=== PATIENT | female | born 1940 | race Caucasian/White ===

== ENCOUNTER 2024-09-22 14:42 | Emergency (ER) | payer OTHER, MEDICAID, SELFPAY ==
--- NOTE | 2024-09-22 15:29 | EDNOTE_ITS ---
ED General RME/HPI General Chief complaint: General Adult/Misc Complain Stated complaint: WEAKNESS Time Seen by Provider: 09/22/24 15:22 Arrival date/time: 09/22/24 14:42 RME / HPI RME / HPI narrative: This section includes all my notes and documentations, including HPI, PE, MDM, Procedure Notes, and PLAN. Sebastian Mcneil MD HPI: 83 year old female with history of Alzheimer's disease, HFpEF 60% 12/2022, AFib, CVA w/o residual deficits, COPD, hypertension, alcoholic liver cirrhosis, GERD presents [facility] the ED [facility] for evaluation of global weakness and decreased appetite x 6 days. Per medics, PA staff reported the patient was just discharged from this facility after a 6 day admission and since arriving there has not had an appetite. No other complaints reported. ROS: Can't obtain from the patient due to dementia. Physical Exam: General: Alert. No acute distress. Eyes: Conjunctivae and lids clear. EOMI. PERRL. ENT: No nasal congestion. Neck: Supple. No carotid bruit. No JVD. Heart: RRR. Lungs: No respiratory distress. Moderately decreased air movement. No significant rhonchi, wheezing, rales. Abdomen: Soft and nontender. Legs: No clubbing, cyanosis, edema. Skin: Warm and dry. Neuro: Alert. Cranial Nerves II-XII grossly intact. No peripheral motor deficits. Musculoskeletal: All major joints and bones are not tender with no limited ROM. I reviewed EMS and long-term notes. I reviewed all diagnostic test results. At this point, diagnoses include generalized weakness and hypokalemia. Discharge instructions from Dr. Mcneil: 1. After evaluation, CT scan of the brain showed no stroke. And the blood tests were normal except low potassium level, replaced orally and intravenously today. 2. Take potassium supplement as prescribed daily until cleared by a doctor. 3. Take Diflucan for the significant amount of yeast in her urine, seen yesterday. 3. See a private doctor on 09/23/2024 for recheck and further care. Ask to review all diagnostic test results, including official radiology reports, from today and from recent hospitalization here this month. To make sure she receives all necessary follow-ups and monitoring, including potassium level and workup for the lung mass. If the lung mass is cancer, this may explain the weakness and not eating. 4. Seek immediate medical care with worsening or with any concerns. Related Data Home Medications ?Medication ?Instructions ?Recorded ?Confirmed atorvastatin 20 mg tablet 20 mg PO QPM 10/05/18 09/15/24 donepezil 5 mg tablet 5 mg PO QDAY 08/22/23 09/15/24 amlodipine 2.5 mg tablet 2.5 mg PO DAILY 09/15/24 09/15/24 cyclobenzaprine 5 mg tablet 5 mg PO QPM 09/15/24 09/15/24 latanoprost 0.005 % eye drops 1 drp ophthalmic (eye) HS 09/15/24 09/15/24 lisinopril 10 mg tablet 10 mg PO QDAY 09/15/24 09/15/24 Previous Rx's ?Medication ?Instructions ?Recorded megestrol 800 mg/20 mL (20 mL) 800 mg (20 mL) PO QDAY #600 mL 09/21/24 oral suspension fluconazole 200 mg tablet 200 mg PO QDAY #7 tabs 09/22/24 (Diflucan) potassium chloride 20 mEq 20 meq PO QDAY #30 tabs 09/22/24 tablet,extended release Allergies Allergy/AdvReac Type Severity Reaction Status Date / Time codeine Allergy Severe Hives Verified 09/23/24 23:20 Penicillins Allergy Severe Hives Verified 09/23/24 23:20 ibuprofen Allergy Verified 09/23/24 23:20 Review of Systems Review of Systems Systems Reviewed: All systems reviewed, normal except as documented Past Medical History Past Medical History NEUROLOGIC: Positive Neurological Disorders and Migraine CARDIAC: Positive Cardiac Disorders, Congestive Heart Failure and Hypertension RESPIRATORY: Positive Chronic Obstructive Pulmonary Disease (COPD) GASTROINTESTINAL: Positive Gastrointestinal Disorders, Gastrointestinal Bleed and Gastroesophageal Reflux Disease GENITOURINARY: Positive Genitourinary Disorders and Renal Disease MUSCULOSKELETAL: Positive Musculoskeletal Disorders, Arthritis and Osteoporosis PSYCHO/SOCIAL: Positive Depression and Anxiety OTHER HISTORY: Positive Blood Transfusions Surgical History SURGICAL: Positive Open Reduction Internal Fixation Social History SMOKING STATUS: Current some day smoker ED Exam Narrative Physical exam: As noted in HPI Course Quality Measures none Orders Category Date Time Status Bedside COVID-19 Antigen Test NOW Care 09/22/24 15:35 Completed Bedside Influenza A&B Antigen Test NOW Care 09/22/24 15:[address] head/brain wo con Stat Exams 09/22/24 15:39 Completed CBC Stat Lab 09/22/24 16:33 Completed CMP [Comprehensive Metabolic Panel] Stat Lab 09/22/24 16:33 Completed Magnesium Stat Lab 09/22/24 16:33 Completed RSV [Respiratory Syncytial Virus Ag] Stat Lab 09/22/24 15:49 Completed KCL 10% Liq UDC 15 ML Med 09/22/24 17:20 Discontinued 40 meq PO X1 ONE Reevaluation(s) Reevaluation #1: I spoke with the patients daughter Samantha. States she saw the patient yesterday at 2pm and today at 3pm and appeared the same. Time: 15:35 Vital Signs Vital signs: Vital Signs Temperature 98.3 F 09/22/24 15:58 Pulse Rate 81 09/22/24 15:58 Respiratory Rate 16 09/22/24 15:58 Blood Pressure 120/83 09/22/24 15:58 Pulse Oximetry (%) 98 09/22/24 15:58 Oxygen Delivery Method Room Air 09/22/24 15:58 Pulse ox is 98% on room air which is adequate. [facility] Patient data External records reviewed:: [facility] previous records (I reviewed admission from 09/15/2024 through 09/21/2024), EMS form and [facility] records (I reviewed medications and medical hx from [facility] ) Clinical information provided by:: EMS Social determinants that could affect healthcare access:: housing (SNF resident ) Patient has the following chronic illnesses:: Alzheimer's disease, HFpEF 60% 12/2022, AFib, CVA w/o residual deficits, COPD, hypertension, alcoholic liver cirrhosis, GERD How is presenting disease/condition affected by chronic disease/condition?: e xacerbated by Evaluation data The following diagnostics were reviewed and interpreted by me:: lab results and radiology exam(s) Lab and/or radiology exams considered but not ordered:: None Interpretation Summary: Ordering Physician: Sebastian Mcneil MD Date of Service: 09/22/24 Procedure(s): CT head/brain wo con Accession Number(s): [id number] cc: Sebastian Mcneil MD; Marcelo Mccarthy MD; Elizabeth Ragsdale PA-C~ Examination: CT brain head without contrast. 2-D sagittal coronal reconstructions Date and time of exam:September 22, 2024 1658 hours INDICATIONS: Altered mental status, confusion today, patient fell with injury to the back of the head September 15, 2024 followed by head pain CTDI: vol (mGy):42.7 DLP: (mGycm):864 Technique: Multiple CT axial sections of the brain have been obtained, 5 mm slice thickness. Contrast has not been administered. 2-D sagittal, coronal reconstructions have been obtained Low dose protocols were performed. One or more of the following dose reduction techniques were used; automated exposure control, adjustment of the mA and/or KV according to patient size, use of iterative reconstruction technique. Findings: Mild ventricular enlargement. Intra-axial or extra-axial hemorrhage density is not seen. No mass effect or midline shift Basal cisterns are not remarkable. Fourth ventricle is midline. Cranial vault intact. Right sphenoid sinusitis Impression: Negative for acute hemorrhage, mass effect or midline shift If altered mental status persists, consider brain MRI follow-up, stroke protocol Dictated By: Marcelo Mccarthy MD Signed By: <Electronically signed by Marcelo Mccarthy MD in OV> 09/22/24 1732 Medications Medications considered but not ordered:: None Medication administrations:: Medication Administration History Discontinued Medications Potassium Chloride (Potassium Chloride 10% 20 Meq/15 Ml Udc) 40 meq PO X1 ONE Stop: 09/22/24 17:21 Last Admin: 09/22/24 19:36 Dose: 40 meq Documented By: DB See above Consultations Consultation(s) initiated? (list below): No Diagnosis Differential Diagnosis ED Complaint MDM: Sepsis, UTI, weakness Most likely diagnosis given after review of the tests above:: Asthenia Hypokalemia Admission Indicated Admission indicated?: not indicated Explain why admission is indicated or not indicated:: Does not meet admission criteria Admission Request Was there a request for admission?: No Disposition Plan Disposition Plan: Discharge Discharge Attestation Discharge Attestation: The patient and all family members were given an opportunity to ask questions and understood the discharge instructions. Discharge instructions specifically effects, indications for sooner follow up or return to the emergency department, and the expected course of current diagnosis. Patient condition: Stable Medical Decision Making Differential Diagnosis Differential Diagnosis: Sepsis, UTI, weakness Lab Data 09/22/24 16:33 09/22/24 16:33 Labs: Lab Results 09/22/24 09/22/24 Range/Units 15:49 16:33 WBC 6.6 (3.6-11.0) Thou/mm3 RBC 3.18 L (4.00-5.20) Miln/mm3 Hgb 9.8 L (12.0-16.0) g/dL Hct 29.3 L (36.0-46.0) % MCV 92 (80-100) fL MCH 30.8 (25.0-35.0) pg MCHC 33.4 (31.0-37.0) g/dl RDW Std Deviation 47.7 H (36.4-46.3) fL Plt Count 94 L (140-440) Thou/mm3 Neut % (Auto) 59 (37-80) % Lymph % (Auto) 22 (10-50) % [place] % (Auto) 15 H (0-12) % Eos % (Auto) 2 (0-10) % Baso % (Auto) 1 (0-2.5) % Neut # (Auto) 3.9 (1.8-7.7) Thou/mm3 Lymph # (Auto) 1.4 (1.0-4.8) Thou/mm3 [place] # (Auto) 1.0 H (0.0-0.8) Thou/mm3 Eos # (Auto) 0.1 (0.0-0.5) Thou/mm3 Baso # (Auto) 0.0 (0.0-0.2) Thou/mm3 Immature Gran # (Auto) 0.17 H (0.00-0.00) Thou/mm3 Absolute Nucleated RBC 0.02 H (0.00-0.00) Thou/mm3 Immature Gran % 3 H (0-0) % Nucleated RBC % 0 (0) /100 WBC Sodium 148 H (136-145) mMol/L Potassium 2.9 L (3.4-5.1) mMol/L Chloride 115 H (98-107) mMol/L Carbon Dioxide 23.8 (20.0-31.0) mMol/L Anion Gap 9 (7-16) BUN 10 (9-23) mg/dL Creatinine 1.0 (0.6-1.3) mg/dL Estim Creat Clear Calc 33.3 L (>60) mL/min eGFR 57 L (60 - ) See Note BUN/Creatinine Ratio 10 L (12-20) Ratio Glucose 89 (74-106) mg/dL Calculated Osmolality 292 (275-295) Calcium 8.8 (8.3-10.6) mg/dL Corrected Calcium 9.5 (8.5-10.1) mg/dL Magnesium 1.9 (1.6-2.6) mg/dL Total Bilirubin 0.7 (0.3-1.2) mg/dL AST 22 (0-34) U/L ALT 24 (10-49) U/L Alkaline Phosphatase 80 (46-116) U/L Total Protein 5.2 L (5.7-8.2) gm/dL Albumin 3.1 L (3.4-4.8) gm/dL Globulin 2.1 L (2.3-3.5) gm/dL Albumin/Globulin Ratio 1.5 (1.2-2.2) RSV Rapid Negative (Negative) Discharge Plan Plan Patient Disposition: Xfer Skilled Nsg Fac (SNF) Prescriptions/Referrals Prescriptions/Med Rec: New potassium chloride 20 mEq tablet extended release 20 meq PO QDAY Qty: 30 5RF fluconazole [Diflucan] 200 mg tablet 200 mg PO QDAY Qty: 7 0RF No Action donepezil 5 mg tablet 5 mg PO QDAY atorvastatin 20 mg Tablet 20 mg PO QPM amlodipine 2.5 mg Tablet 2.5 mg PO DAILY lisinopril 10 mg Tablet 10 mg PO QDAY cyclobenzaprine 5 mg Tablet 5 mg PO QPM latanoprost 0.005 % Drops 1 drp OPHTHALMIC (EYE) HS Rx Instructions: 0.005%1 drop both eyes HS megestrol 800 mg/20 mL (20 mL) suspension 800 mg PO QDAY Qty: 600 0RF Referrals: Elizabeth Ragsdale PA-C [Primary Care Provider] - In 1 week Problem List Clinical Impression: Asthenia, Hypokalemia Patient/Caregiver Discharge Instructions Education Materials: ED Hypokalemia, ED Weakness (Uncertain Cause) Additional Instructions: Discharge instructions from Dr. Mcneil: 1. After evaluation, CT scan of the brain showed no stroke. And the blood tests were normal except low potassium level, replaced orally and intravenously today. 2. Take potassium supplement as prescribed daily until cleared by a doctor. 3. Take Diflucan for the significant amount of yeast in her urine, seen yesterday. 3. See a private doctor on 09/23/2024 for recheck and further care. Ask to review all diagnostic test results, including official radiology reports, from today and from recent hospitalization here this month. To make sure she receives all necessary follow-ups and monitoring, including potassium level and workup for the lung mass. If the lung mass is cancer, this may explain the weakness and not eating. 4. Seek immediate medical care with worsening or with any concerns. Print Language: [place] Stand Alone Forms: Marina Award Info., Patient Portal Info Letter
--- NOTE | 2024-09-22 15:39 | XR_ITS ---
Examination: CT brain head without contrast. 2-D sagittal coronal reconstructions Date and time of exam:September 22, 2024 1658 hours INDICATIONS: Altered mental status, confusion today, patient fell with injury to the back of the head September 15, 2024 followed by head pain CTDI: vol (mGy):42.7 DLP: (mGycm):864 Technique: Multiple CT axial sections of the brain have been obtained, 5 mm slice thickness. Contrast has not been administered. 2-D sagittal, coronal reconstructions have been obtained Low dose protocols were performed. One or more of the following dose reduction techniques were used; automated exposure control, adjustment of the mA and/or KV according to patient size, use of iterative reconstruction technique. Findings: Mild ventricular enlargement. Intra-axial or extra-axial hemorrhage density is not seen. No mass effect or midline shift Basal cisterns are not remarkable. Fourth ventricle is midline. Cranial vault intact. Right sphenoid sinusitis Impression: Negative for acute hemorrhage, mass effect or midline shift If altered mental status persists, consider brain MRI follow-up, stroke protocol
[2024-09-22 15:58] VITALS: BP 120/83; PULSE 81; RESP 16; TEMP 36.8; O2SAT 98
[2024-09-22 16:01] VITALS: BMI 20.7
[2024-09-22 16:43] LABS: Respiratory Syncytial Virus Ag Negative (Negative)
[2024-09-22 17:01] LABS: Basophils % (Auto) 1 % (0-2.5); Eosinophils # (Auto) 0.1 Thou/mm3 (0.0-0.5); Eosinophils % (Auto) 2 % (0-10); Hematocrit 29.3 % (36.0-46.0); Hemoglobin 9.8 g/dL (12.0-16.0); Immature Granulocytes % (Auto) 3 % (0-0); Immature Granulocytes Auto 0.17 Thou/mm3 (0.00-0.00); Lymphocytes # (Auto) 1.4 Thou/mm3 (1.0-4.8); Lymphocytes % (Auto) 22 % (10-50); Mean Corpuscular HGB Conc 33.4 g/dl (31.0-37.0); Mean Corpuscular Hemoglobin 30.8 pg (25.0-35.0); Mean Corpuscular Volume 92 fL (80-100); Monocytes % (Auto) 15 % (0-12); Neutrophils # (Auto) 3.9 Thou/mm3 (1.8-7.7); Neutrophils % (Auto) 59 % (37-80); Nucleated Red Blood Cell # 0.02 Thou/mm3 (0.00-0.00); Nucleated Red Blood Cell % 0 /100 WBC (0); Platelet Count 94 Thou/mm3 (140-440); RDW Standard Deviation 47.7 fL (36.4-46.3); Red Blood Count 3.18 Miln/mm3 (4.00-5.20); White Blood Count 6.6 Thou/mm3 (3.6-11.0)
[2024-09-22 17:18] LABS: Alanine Aminotransferase 24 U/L (10-49); Albumin, Serum 3.1 gm/dL (3.4-4.8); Albumin/Globulin Ratio 1.5 (1.2-2.2); Alkaline Phosphatase 80 U/L (46-116); Anion Gap 9 (7-16); Aspartate Amino Transferase 22 U/L (0-34); BUN/Creatinine Ratio 10 Ratio (12-20); Bilirubin,Total 0.7 mg/dL (0.3-1.2); Blood Urea Nitrogen 10 mg/dL (9-23); Calcium 8.8 mg/dL (8.3-10.6); Calcium (Corrected) 9.5 mg/dL (8.5-10.1); Carbon Dioxide 23.8 mMol/L (20.0-31.0); Chloride 115 mMol/L (98-107); Estimated Creatinine Clearance 33.3 mL/min (>60); Globulin 2.1 gm/dL (2.3-3.5); Glucose 89 mg/dL (74-106); Magnesium 1.9 mg/dL (1.6-2.6); Osmolality,Calculated 292 (275-295); Potassium 2.9 mMol/L (3.4-5.1); Sodium 148 mMol/L (136-145); Total Protein 5.2 gm/dL (5.7-8.2); eGFR 57 See Note
[2024-09-22 18:40] VITALS: BP 139/91; PULSE 90; RESP 20; TEMP 37; O2SAT 98
[2024-09-22] MEDS: POTASSIUM CHLORIDE 10% 20 MEQ/15 ML UDC 40 MEQ PO (19:36)
[2024-09-22 20:04] VITALS: BP 107/86; PULSE 99; RESP 19; TEMP 36.5; O2SAT 97
--- NOTE | 2024-09-22 22:11 | PC.NURSE ---
Called donna garcia and gave report to Yola GALINDO
[2024-09-22 23:32] VITALS: BP 127/82; PULSE 60; RESP 16; TEMP 36.6; O2SAT 98
== END 2024-09-22 23:30 | disposition skilled nursing facility (03) ==
PROVIDERS: Emergency Provider Emergency Medicine; PCP Physician Assistant
DX: E87.6 Hypokalemia (principal); R53.1 Weakness; S09.90XA Unspecified injury of head, initial encounter; W19.XXXA Unspecified fall, initial encounter; F02.80 Dementia in other diseases classified elsewhere, unspecified severity, without behavioral disturbance, psychotic disturbance, mood disturbance, and anxiety; G30.9 Alzheimer's disease, unspecified
CPT/HCPCS: 36415; 70450; 80053; 83735; 85025; 87400; 87634; 87811; 99284; A9270

== ENCOUNTER 2024-09-23 23:02 | Emergency (ER) | payer OTHER, MEDICAID, SELFPAY ==
[2024-09-23 23:07] VITALS: PULSE 83; RESP 20; O2SAT 79
[2024-09-23 23:18] VITALS: BP 122/77; PULSE 90; RESP 20; TEMP 36.5; O2SAT 97
--- NOTE | 2024-09-23 23:18 | EKG_ITS ---
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
[2024-09-23 23:19] VITALS: BMI 19.5
--- NOTE | 2024-09-23 23:32 | PD.EDAMS ---
Altered Mental Status RME/HPI General Chief Complaint: Altered Mental Status Stated Complaint: AMS Time Seen by Provider: 09/23/24 23:34 Arrival date/time: 09/23/24 23:02 RME / HPI RME / HPI narrative: Dr. Schimtz's Main ED Evaluation: 83yo female ADRIANA from [facility] for a chief complaint of AMS. Per EMS, patient's LKWT was at 2000. Blood sugar on scene was 70, so EMS administered D10. EMS endorses the patient has not been eating or drinking. Full ROS is unobtainable due to the patient's AMS. 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 deficits, COPD, hypertension, alcoholic liver cirrhosis, GERD, left lung mass CODE Status: DNR/DNI Related Data Home Medications ?Medication ?Instructions ?Recorded ?Confirmed atorvastatin 20 mg tablet 20 mg PO QPM 10/05/18 09/15/24 donepezil 5 mg tablet 5 mg PO QDAY 08/22/23 09/15/24 amlodipine 2.5 mg tablet 2.5 mg PO DAILY 09/15/24 09/15/24 cyclobenzaprine 5 mg tablet 5 mg PO QPM 09/15/24 09/15/24 latanoprost 0.005 % eye drops 1 drp ophthalmic (eye) HS 09/15/24 09/15/24 lisinopril 10 mg tablet 10 mg PO QDAY 09/15/24 09/15/24 Previous Rx's ?Medication ?Instructions ?Recorded megestrol 800 mg/20 mL (20 mL) 800 mg (20 mL) PO QDAY #600 mL 09/21/24 oral suspension fluconazole 200 mg tablet 200 mg PO QDAY #7 tabs 09/22/24 (Diflucan) potassium chloride 20 mEq 20 meq PO QDAY #30 tabs 09/22/24 tablet,extended release Allergies Allergy/AdvReac Type Severity Reaction Status Date / Time codeine Allergy Severe Hives Verified 09/23/24 23:20 Penicillins Allergy Severe Hives Verified 09/23/24 23:20 ibuprofen Allergy Verified 09/23/24 23:20 Review of Systems Review of Systems ROS Unobtainable: unobtainable due to mental status ED Exam Narrative Physical exam: GEN. APPEARANCE: Patient can only say her first name, but has unintelligible speech; does look terminally ill. Patient has slow mentation, but she had good eye contact. Patient does not provide reliable answers, stating everything hurts when I palpate. VITALS: All vitals were reviewed and the pulse ox is 97% on 6L/nasal cannula, which is normal according to my interpretation. HEENT: Normocephalic, atraumatic and nontender. Pupils are equal and reactive to light and accommodation. Oral mucosa are dry. NECK: Supple, nontender, no meningismus, no JVD. CHEST: Nontender on palpation, no deformity and no crepitus. CARDIOVASCULAR: Heart regular rhythm no murmur or gallop rub or extra beats; not tachycardic. LUNGS: Clear to auscultation bilaterally with symmetrical chest rise. No laboring tachypnea or wheezing. No intercostal subcostal retraction. No rales and no rhonchi. ABDOMEN: Soft, flat, nontender at all, no guarding or rebound tenderness. There are no abnormal masses palpated. No pulsatile masses or bruits. Active and normal bowel sounds. GENITALIA: Not examined. RECTAL EXAM: Not done. EXTREMITIES: Nontender. No edema. No cyanosis. Patient is able to move all 4 extremities well. SKIN: Warm and dry, no rashes noted. MUSCULOSKELETAL: No lumbar or midline bony tenderness. There is no CVA tenderness. No paraspinal muscle spasm or tenderness. NEURO: Cranial nerves II through XII grossly intact. There is no focalization. GCS is 13. PSYCHIATRIC: Patient is in normal mood and affect, cooperative. LYMPHATICS: No major lymphadenopathy noted. Course Quality Measures none Orders Category Date Time Status EKG (ED ONLY) *Do not use* NOW Care 09/23/24 23:18 Completed Insert [Insert IV] NOW Care 09/23/24 23:55 Active EKG (ED Only) Stat Exams 09/23/24 23:18 Draft XR chest 1V portable Stat Exams 09/23/24 23:55 Taken B-Type Natriuretic Peptide Stat Lab 09/23/24 23:55 Completed CBC Stat Lab 09/23/24 23:55 Completed Comprehensive Metabolic Panel Stat Lab 09/23/24 23:55 Completed Troponin I Stat Lab 09/23/24 23:55 Completed Potassium Chloride [K-Dur] Med 09/24/24 02:42 Discontinued 20 meq PO X1 ONE Sodium Chloride 0.45 % [Ns 0.45%] 1,000 ml Med 09/24/24 03:19 Discontinued IV 500 mls/hr Sodium Chloride 0.45 % [Ns 0.45%] 1,000 ml Med 09/24/24 02:43 Discontinued IV 999 mls/hr Sodium Chloride 0.45 % [Ns 0.45%] 1,000 ml Med 09/24/24 02:44 Discontinued IV 999 mls/hr Vital Signs Vital signs: Vital Signs Temperature 97.7 F 09/23/24 23:18 Pulse Rate 90 09/23/24 23:18 Respiratory Rate 20 09/23/24 23:18 Blood Pressure 122/77 09/23/24 23:18 Pulse Oximetry (%) 97 09/23/24 23:18 Oxygen Delivery Method Nasal Cannula 09/23/24 23:18 Oxygen Flow Rate 6 09/23/24 23:18 Procedures -ED EKG Interpretation #1: Date of EK09/24/24 Rate: 85 Interpretation: Interpreted by me EKG Impression: Normal sinus rhythm, No ectopy, Normal intervals, Normal axis and Non-specific ST-T Additional EKG comment: LVH with a strain. Altered Mental Status MDM Narrative MDM Narrative:: Scribe Attestation: 09/23/24 - Bethany Hackett am scribing for and in the presence of Dr. Schmitz. Patient was sent over from [facility] due to altered mental status. Patient was admitted to this hospital on 09/15/2024 until 09/21/2024 for dehydration and hypokalemia and also left upper lung mass. [facility] yesterday morning again for altered mental status. A CAT scan of the [facility], which resulted to be negative. She was found hypokalemic and was [facility]. [facility] the [facility] since her back for altered mental status and not eating and not drinking. Patient can barely say her first name and it is an unintelligible speech. Her mucosa are very dry. She has good eye contact but her mentation is very slow. She seems to be under no distress. She seems to be terminally ill. We will do basic workup on her. The resident was rotating with me, says that he took care of her upstairs while this patient was admitted on 15 September and at that time, and also at the time of discharge, patient was unchanged in her mental status and this is the way that she has been since then. At 2:40 AM, her sodium is elevated at 151 and her chloride is 118, which is quite high and her potassium is 3.1. Therefore, I ordered 1000 cc of half-normal saline IV wide open as well as 20 mill equivalents of potassium p.o. and [facility] will be [facility]. Provider Notation: Although this document has been carefully reviewed, there may still be some phonetic and other typographical errors. These errors are purely grammatical due to imperfections in the software program and should not be construed in any way to compromise the substance of the patient's medical care during this visit. 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 Medications / Prescriptions Medications or Prescriptions considered but not ordered:: none Medication administrations:: Medication Administration History Discontinued Medications Sodium Chloride (Ns 0.45%) 1,000 mls @ 999 mls/hr IV .Q1H1M SERVANDO Stop: 10/24/24 02:42 Last Admin: 09/24/24 02:47 Dose: Not Given Documented By: SE Non-Admin Reason: Duplicate Medication on eMAR Sodium Chloride (Ns 0.45%) 1,000 mls @ 999 mls/hr IV .Q1H1M ONE Stop: 09/24/24 03:44 Last Admin: 09/24/24 03:21 Dose: Not Given Documented By: NOVA Non-Admin Reason: Discontinued Sodium Chloride (Ns 0.45%) 1,000 mls @ 500 mls/hr IV .Q2H ONE Stop: 09/24/24 04:43 Last Admin: 09/24/24 03:21 Dose: 500 mls/hr Documented By: NOVA Potassium Chloride (Potassium Chloride 20 Meq Tabcr) 20 meq PO X1 ONE Stop: 09/24/24 02:43 Last Admin: 09/24/24 03:17 Dose: 20 meq Documented By: NOVA see above, if any Consultations Consultation(s) initiated? (list below): No Diagnosis Differential diagnosis altered mental status: sepsis and other (lung mass, hypokalemia, electrolyte imbalance, pneumonia) Most likely diagnosis given after review of the tests above:: see below Admission Indicated Admission indicated?: not indicated Admission Request Was there a request for admission?: No Disposition Plan Disposition Plan: Discharge Discharge Attestation Discharge Attestation: The patient and all family members were given an opportunity to ask questions and understood the discharge instructions. Discharge instructions specifically effects, indications for sooner follow up or return to the emergency department, and the expected course of current diagnosis. Patient condition: Stable Discharge Plan Plan Patient Disposition: Xfer Skilled Nsg Fac (SNF) Prescriptions/Referrals Prescriptions/Med Rec: No Action donepezil 5 mg tablet 5 mg PO QDAY atorvastatin 20 mg Tablet 20 mg PO QPM amlodipine 2.5 mg Tablet 2.5 mg PO DAILY lisinopril 10 mg Tablet 10 mg PO QDAY cyclobenzaprine 5 mg Tablet 5 mg PO QPM latanoprost 0.005 % Drops 1 drp OPHTHALMIC (EYE) HS Rx Instructions: 0.005%1 drop both eyes HS megestrol 800 mg/20 mL (20 mL) suspension 800 mg PO QDAY Qty: 600 0RF potassium chloride 20 mEq tablet extended release 20 meq PO QDAY Qty: 30 5RF fluconazole [Diflucan] 200 mg tablet 200 mg PO QDAY Qty: 7 0RF Referrals: Talat Vargas MD [Primary Care Provider] - 09/25/24 10:00 am Problem List Clinical Impression: Dehydration, Electrolyte imbalance Patient/Caregiver Discharge Instructions Education Materials: ED Dehydration (Adult) Additional Instructions: Please be generous to give her plenty of water every day because her sodium and chloride are high. Also continue giving her potassium 10 mEq/day. Print Language: Filipino Stand Alone Forms: Marina Award Info., Patient Portal Info Letter
--- NOTE | 2024-09-23 23:55 | XR_ITS ---
Examination: AP chest single view Technique one AP portable semiupright chest single view Exam date and time: September 24, 2024 1202 hours Comparison January 30, 2023 INDICATIONS: Chest pain shortness of breath today. FINDINGS: 4 cm masslike area in the left hilum Opacity both bases consistent with pneumonia Mild prominence left ventricle IMPRESSION: Recommend CT chest post intravenous contrast follow-up to exclude left mediastinal tumor adenopathy Pneumonia both bases
[2024-09-24 00:41] LABS: Alanine Aminotransferase 29 U/L (10-49); Albumin, Serum 3.1 gm/dL (3.4-4.8); Albumin/Globulin Ratio 1.5 (1.2-2.2); Alkaline Phosphatase 83 U/L (46-116); Anion Gap 8 (7-16); Aspartate Amino Transferase 36 U/L (0-34); BUN/Creatinine Ratio 13 Ratio (12-20); Bilirubin,Total 0.6 mg/dL (0.3-1.2); Blood Urea Nitrogen 15 mg/dL (9-23); Calcium 9.6 mg/dL (8.3-10.6); Calcium (Corrected) 10.3 mg/dL (8.5-10.1); Carbon Dioxide 24.6 mMol/L (20.0-31.0); Chloride 118 mMol/L (98-107); Creatinine (Component) 1.2 mg/dL (0.6-1.3); Globulin 2.1 gm/dL (2.3-3.5); Glucose 181 mg/dL (74-106); Osmolality,Calculated 305 (275-295); Potassium 3.1 mMol/L (3.4-5.1); Sodium 151 mMol/L (136-145); Total Protein 5.2 gm/dL (5.7-8.2); Troponin I 0.028 ng/mL (0.0-0.045); eGFR 45 See Note
[2024-09-24 00:51] LABS: Basophils % (Auto) 1 % (0-2.5); Eosinophils # (Auto) 0.1 Thou/mm3 (0.0-0.5); Eosinophils % (Auto) 1 % (0-10); Hematocrit 28.8 % (36.0-46.0); Hemoglobin 9.4 g/dL (12.0-16.0); Immature Granulocytes % (Auto) 3 % (0-0); Immature Granulocytes Auto 0.22 Thou/mm3 (0.00-0.00); Lymphocytes # (Auto) 1.4 Thou/mm3 (1.0-4.8); Lymphocytes % (Auto) 21 % (10-50); Mean Corpuscular HGB Conc 32.6 g/dl (31.0-37.0); Mean Corpuscular Hemoglobin 30.6 pg (25.0-35.0); Mean Corpuscular Volume 94 fL (80-100); Monocytes # (Auto) 1.2 Thou/mm3 (0.0-0.8); Monocytes % (Auto) 18 % (0-12); Neutrophils # (Auto) 3.7 Thou/mm3 (1.8-7.7); Neutrophils % (Auto) 56 % (37-80); Nucleated Red Blood Cell % 0 /100 WBC (0); Platelet Count 94 Thou/mm3 (140-440); RDW Standard Deviation 48.5 fL (36.4-46.3); Red Blood Count 3.07 Miln/mm3 (4.00-5.20); White Blood Count 6.5 Thou/mm3 (3.6-11.0)
[2024-09-24 01:17] VITALS: BP 119/72; PULSE 70; RESP 14; O2SAT 100
[2024-09-24 01:17] LABS: B-Type Natriuretic Peptide 79 pg/mL (0-100)
--- NOTE | 2024-09-24 03:13 | PC.NURSE ---
0313 PER OLEGARIO FROM TELE-PHARMACY STATES 1/2 NORMAL SALINE AT 500ML AND HOUR WOULD BE OK TO ADMINISTER.
[2024-09-24] MEDS: POTASSIUM CHLORIDE 20 mEq TABCR PO (03:17)
[2024-09-24 03:20] VITALS: BP 139/78; PULSE 80; RESP 19; O2SAT 100
[2024-09-24] MEDS: SODIUM CHLORIDE 0.45 % 1,000 ML 500 ML IV (03:21)
[2024-09-24 04:30] VITALS: BP 144/93; PULSE 71; RESP 17; O2SAT 99
[2024-09-24 06:21] VITALS: BP 156/83; PULSE 73; RESP 18; TEMP 36.7; O2SAT 100
== END 2024-09-24 06:35 | disposition skilled nursing facility (03) ==
PROVIDERS: Emergency Provider Emergency Medicine; PCP Hospitalist
DX: E86.0 Dehydration (principal); E87.8 Other disorders of electrolyte and fluid balance, not elsewhere classified; R94.31 Abnormal electrocardiogram [ECG] [EKG]; I11.0 Hypertensive heart disease with heart failure; I50.32 Chronic diastolic (congestive) heart failure
CPT/HCPCS: 36415; 71045; 80053; 83880; 84484; 85025; 93005; 96360; 96361; 99284; J7030; A9270